=== PATIENT | male | born 1970 | race Caucasian/White ===

== ENCOUNTER 2017-05-04 08:12 | Outpatient (CLI) | payer OTHER ==
--- NOTE | 2017-05-04 10:31 | XRAY Report ---
THREE-VIEW LEFT KNEE: 05/04/2017 CLINICAL INDICATION: Chronic pain. FINDINGS: AP, lateral, sunrise views of the left knee demonstrate mild osteoarthritis, with small ma rginal osteophytes. There is no evidence of acute fracture or dislocation. No effusion is present. IMPRESSION: MILD OSTEOARTHRITIS. JOB #: [id number] EXT JOB #:[id number]
== END 2017-05-04 08:13 | disposition home or self-care (01) ==
LOC: DI 08:12
PROVIDERS: ATTEND Family Medicine
DX: M17.12 Unilateral primary osteoarthritis, left knee (principal)

== ENCOUNTER 2017-05-17 13:40 | Outpatient (CLI) | payer OTHER ==
--- NOTE | 2017-05-17 16:18 | MRI Report ---
EXAM: LEFT KNEE MRI WITHOUT CONTRAST EXAM DATE: 05/17/2017 02:30 PM. CLINICAL HISTORY: 3 months of knee pain, mild osteoarthritis, effusion on x-ray. COMPARISON: 05/04/2017 plain x-ray of the knee. TECHNIQUE: Multiplanar, multisequence T1-weighted and fluid-sensitive sequences of the knee without c ontrast. Other: None. FINDINGS: Bones: No fractures or subluxations. No marrow edema. No bone lesions. Articular Cartilage: Unremarkable. Medial Meniscus: Complex tear mid body and posterior horn of the medial meniscus with an associated p arameniscal cyst. Please see series 501 image 24 for example. No displaced fragment. Lateral Meniscus: The lateral meniscus is intact. Cruciate Ligaments: The anterior and posterior cruciate ligaments are intact. Collateral Ligaments: LCL is normal. There is a small amount of increased T2 signal around the intact MCL which may be related to the multilocular parameniscal cyst. Tendons: The quadriceps, patellar, semimembranosus, and popliteus tendons are unremarkable. Musculature: No edema or fatty atrophy. Other: No effusion. Small multilocular popliteal cyst. No loose bodies. The medial and lateral retina cula are intact. . IMPRESSION: 1. Complex tear mid body and posterior horn medial meniscus with associated parameniscal cyst. No dis placed fragment. 2. Lateral meniscus, cruciates and collaterals are normal. There is a small amount of fluid surroundi ng the MCL, probably related to multilocular medial parameniscal cyst. 3. Small multilocular popliteal cyst. [facility] MUSCULOSKELETAL RADIOLOGY SECTION Referring Provider Line: [phone] SITE ID: [id number]
== END 2017-05-17 13:41 | disposition home or self-care (01) ==
LOC: DI 13:40
PROVIDERS: ATTEND Family Medicine
DX: S83.232A Complex tear of medial meniscus, current injury, left knee, initial encounter (principal); M71.22 Synovial cyst of popliteal space [Baker], left knee